=== PATIENT | female | born 1945 | race Caucasian/White ===

== ENCOUNTER 2019-01-02 08:27 | Inpatient (IN) | payer MEDICARE, BC ==
[~2019-01-02] VITALS: Wt 66.0 kg
[2019-01-02] VITALS (23 sets, daily range): BP systolic 34–138; BP diastolic 25–94; PULSE 38–112; RESP 18–30
[~2019-01-02 08:27] MED LIST: EPINEPHrine 0.1 MG/ML SYG ONE; NA BICARBONATE 8.4% 50 ML SYG ONE
[2019-01-02] MEDS ORDERED: SOD CHLORIDE 0.9% 1,000 ML IV STA (08:29)
[2019-01-02] MEDS ORDERED: FENTAnyl 50 MCG/ML VIAL ONE ×2 (08:34→08:52)
--- NOTE | 2019-01-02 08:44 | ERD ---
ER Documentation Chief Complaint Chief Complaint HPI This is a 73-year-old female with a known history of coronary artery disease. The patient had a previous cardiac stent placed several years prior to arrival. The patient awoke this morning roughly 30 minutes prior to arrival when she developed a sudden onset of chest pressure. She stated it was 10 out of 10 in intensity. It is localized to the left chest and did radiate to her left arm and neck. The patient became lightheaded and dizzy. She phoned 911. When EMS arrived the patient's blood pressure was 105/98 mmHg. They performed an EKG tracing that showed ST segment elevation. The patient had been given 1 spray of nitroglycerin and 325 mg of aspirin p.o. The patient stated the pain was similar nature to her previous episodes her myocardial infarct ROS All systems reviewed and are negative except as per history of present illness. Physical Exam Physical Exam Const: No acute distress Head: Atraumatic Eyes: Normal Conjunctiva ENT: Normal External Ears, Nose and Mouth. Neck: Full range of motion. No meningismus. Resp: Clear to auscultation bilaterally Cardio: Regular rate and rhythm, no murmurs Abd: Soft, non tender, non distended. Normal bowel sounds Skin: No petechiae or rashes Back: No midline or flank tenderness Ext: No cyanosis, or edema Neur: Awake and alert Psych: Normal Mood and Affect Results 24 hrs Current Medications Medications Dose Sig/Zaira Start Time Status Last (Trade) Ordered Route PRN Stop Time Admin Dose Reason Admin Sodium 1,000 ml @ Q1H STAT 01/02/19 Chloride 1,000 mls/hr IV 08:29 01/02/19 09:28 Procedures/MDM This is a 73-year-old female that presented to the emergency department as a code STEMI. The patient arrived to the emergency department at 05 20. The EKG was taken in the field at 08 20. And therefore code STEMI was called at 05 16. The patient arrived she was immediately placed on a playground monitor continuous pulse oximetry and 2 large bore IV catheters were established. The patient had an inferior wall LA. EMS had administered nitroglycerin and the patient initially had a blood pressure of 105/38. After receiving the nitroglycerin the patient became hypotensive. Her blood pressure was 69/43 mmHg. The patient was alert awake oriented x3. She was complaining of 10 out of 10 chest pain. I re viewed the chest radiograph that was taken at bedside. The patient had breast implants which which your x-ray which I might have a professionally that was present as artifact present on the chest radiograph but there was no widened mediastinum or infiltrates that were seen. The patient had no pneumothorax. The patient was given fentanyl for analgesic control. A central line was not placed given that the patient will immediately go to the cardiac Registered Nursing Professor due to the severity of her symptoms to undergo emergent PCI. 12 Lead EKG tracing ordered and reviewed by myself showed: Normal sinus rhythm at 73 bpm and no arrhythmia. ID interval normal. QRS duration normal. ST segment elevation in the inferior leads II, III and aVF with a left bundle branch block but utilizing the scar posterior criteria there is underlying ST segment elevation. No ST segment depression. No changes consistent with acute ischemia. Dr. Negron is the copping machine operator who was informed and the patient was taken to the Registered Nursing Professor in serious condition. She will be admitted to the hospitalist to go to the intensive care unit. Departure Diagnosis: Primary Impression: ST elevation myocardial infarction (STEMI) Involved coronary artery: unspecified coronary artery Qualified Codes: I21.3 - ST elevation (STEMI) myocardial infarction of unspecified site Condition: SHANI Woods MD Jan 02, 2019 08:44
[2019-01-02] MEDS ORDERED: NITROGLYCERIN (IC) 100 MCG/ML INJ ONE (08:52)
[2019-01-02] MEDS ORDERED: ONDANSETRON 4 MG INJ ONE (09:37)
[2019-01-02] MEDS ORDERED: FUROSEMIDE 40 MG INJ ONE (09:48)
[2019-01-02] MEDS ORDERED: CANGRELOR TETRASODIUM/ NS 250 50 MG ONE ×2 (10:04→11:18)
[2019-01-02] MEDS ORDERED: BIVALIRUDIN 250MG /NS 50 ML 50 ML IVPB ONE (10:32)
[2019-01-02] MEDS ORDERED: LIDOCAINE 1% (MDV) 20 ML INJ ONE (10:33)
[2019-01-02] MEDS ORDERED: EPTIFIBATIDE 20 ML ONE (10:33)
[2019-01-02] MEDS ORDERED: NORepinephrine 8MG/250 ML (PMX 250 ML ONE (10:33)
[2019-01-02] MEDS ORDERED: HEPARIN 1000 UNITS/NS (A-LINE) 0 ML ONE (10:33)
[2019-01-02] MEDS ORDERED: EPTIFIBATIDE 100 ML IV ONE (10:33)
[2019-01-02] MEDS ORDERED: HEPARIN 1000 UNITS/ML 10 ML INJ ONE (10:35)
--- NOTE | 2019-01-02 10:42 | CONS ---
Assessment/Plan Assessment/Plan Hospital Course (Demo Recall) 73 yo with STEMI due to occlusion of LCX Impression: STEMI Shock, cardiogenic, on levophed Anxiety, dyspnea with borderline saturations, with possibly some volume overload with LVEDP 26, received furosemide in airport maintenance laborer Recommendations: Admit to ICU Echo ASA, continue cangrelor until patient can be loaded with Brilinta PO Statin. BB once off pressors Consultation Date/Type/Reason Admit Date/Time Date of Consultation: Jan 02, 2019 Type of Consult Cardiology Reason for Consultation STEMI Requesting Provider: SHANI MATIAS MD Date/Time of Note DATE: 01/02/19 TIME: 10:33 Hx of Present Illness 73 yo with h/o CAD previously under the care of Dr. Jae Green but has not seen a metal bonding assembler in a long time. She had onset of pain acutely this am, called paramedics. She also ate breakfast this am. She c/o shortness of breath. Stopped her medications about a week ago. Angioplasty was many years ago, she states. EKG showed LBBB with severe ST elevations in inferior and anterolateral leads, had subtotal occlusion of the ostial/prox LCX, performed successful angioplasty and placement of a stent to her LCX. Cangrelor given due to vomiting. Subjective hx not possible: pt critical status Past Medical History Medical History: coronary artery disease Past Surgical History Past Surgical Hx: angioplasty Family History Significant Family History: no pertinent family hx Social History Smoking Status: Never smoker Exam/Review of Systems Vital Signs Vitals Vital Signs Date Temp Pulse Resp B/P (MAP) Pulse Ox O2 O2 Flow FiO2 Time Delivery Rate 01/02/19 Nasal 4 08:40 Cannula 01/02/19 97.8 72 20 69/43 (52) 99 08:38 Exam Constitutional: alert, well developed, other (anxious) Psych: anxiety Head: normocephalic, atraumatic Eyes: nl conjunctiva, nl sclera ENMT: nl external ears & nose Neck: No jvd, No bruits Respiratory: crackles/rales (few coarse sounds) Cardiovascular: regular rate and rhythm, nl pulses (femoral pulses intact) Gastrointestinal: soft, nl liver, spleen, non-tender Musculoskeletal: nl extremities to inspection Extremities: No edema Neurological: nl speech Skin: nl turgor Labs Result Diagram: 01/02/19 0835 01/02/19 0835 Results 24hrs Laboratory Tests Test 01/02/19 08:35 01/02/19 09:19 White Blood Count 16.7 H Red Blood Count 4.06 L Hemoglobin 12.1 Hematocrit 38.3 Mean Corpuscular Volume 94.3 Mean Corpuscular Hemoglobin 29.8 Mean Corpuscular Hemoglobin Concent 31.6 L Red Cell Distribution Width 14.8 H Platelet Count 229 Mean Platelet Volume 8.4 Immature Granulocytes % 1.100 H Neutrophils % 71.9 Lymphocytes % 19.6 Monocytes % 5.3 Eosinophils % 1.7 Basophils % 0.4 Nucleated Red Blood Cells % 0.0 Immature Granulocytes # 0.180 H Neutrophils # 12.0 H Lymphocytes # 3.3 H Monocytes # 0.9 Eosinophils # 0.3 Basophils # 0.1 Nucleated Red Blood Cells # 0.0 Sodium Level 135 Potassium Level 4.0 Chloride Level 107 Carbon Dioxide Level 17 L Anion Gap 11 Blood Urea Nitrogen 22 H Creatinine 0.87 Est Glomerular Filtrat Rate mL/min Glucose Level 148 Calcium Level 9.4 Total Bilirubin 0.5 Direct Bilirubin 0.00 Indirect Bilirubin 0.5 Aspartate Amino Transf (AST/SGOT) 122 H Alanine Aminotransferase (ALT/SGPT) 69 Alkaline Phosphatase 65 Creatine Kinase 277 H Creatine Kinase Index 6.9 Creatinine Kinase MB (Mass) 19.00 H Troponin I 0.991 *H B-Type Natriuretic Peptide 1150 H Total Protein 6.3 Albumin 3.3 Globulin 3.00 Albumin/Globulin Ratio 1.10 Prothrombin Time 13.1 Prothrombin Time Ratio 1.0 INR International Normalized Ratio 0.98 Activated Partial Thromboplast Time 123.7 *H Imaging Imaging Initial ekg with nsr at 72 bpm, LBBB, ST elevations concordant with QRS in II, III, AVF, V5, and V6 with reciprocal changes CHRISTELLE YOUNG Jan 02, 2019 10:42
--- NOTE | 2019-01-02 10:57 | OPR ---
Date/Time of Note Date/Time of Note DATE: 01/02/19 TIME: 10:47 Operative Report Procedure Date: Jan 02, 2019 Preoperative Diagnosis STEMI inferolateral wall Postoperative Diagnosis same Operation/Procedure Performed Coronary angoigraphy Left heart catheterization Percutaneous coronary intervention with stent placement to the LCX Surgeon see signature line Cage Unloader Tavares FALLON Anesthesia Type: other (fentanyl for pain. Could not provide moderate sedation secondary to very recent po intake and vomiting) Estimated Blood Loss: 100 - 150 ml's Transfusion none Specimen none Grafts/Implants none Complications none Pt Condition Post Procedure: stable Disposition: other (ICU) Indications 73 yo with known CAD with remote h/o angioplasty presents with acute chest pain and EKG consistent with inferolateral STEMI Procedure Description Informed consent provided verbally by me. Risks and benefits discussed and she agreed to proceed and all questions answered. As pt had just eaten, moderate sedation could not be provided. Right groin was prepped and draped, fentanyl given for pain. Sheaths placed in the right common femoral vein and artery. A JL4 diagnostic and JR4 guide were used to obtain diagnostic images, engaged the LM and RCA respectively, imaging obtained w injection of dye. LCX found to be culprit vessel. JL4 guide did not sit well, so CLS 3.5 was used. Heparin given, ACT greater than 250 obtained. While attempting to wire the vessel, it occluded completely. Integrilin double bolus and drip was sta rted. Vessel was wired ultimately with a Zachary Blue wire. A 2.0x12 balloon initially was inflated within the vessel, followed by a 3.0x15 balloon. A stent was successfully deployed in the ostial/prox LCX. This was postdilated three times with a 3.5x12 mm noncompliant balloon to 20 aquilino. Good apposition was achieved. Images obtained including a wire out shot demonstrating good flow and no evidence of dissection. A pigtail was advanced to the LV, pressures measured, including LVEDP of 26. LV gram performed with only 20 cc of dye, demonstrating akinesis of the inferior wall, and EF of approximately 50%. Pullback gradient measured. Cangrelor given at the end of the case as patient too nauseated to take po meds. She left the procedure room in stable condition. Findings: LM - large, ok LCX - culprit vessel. Codominant. 95% ostial/proximal occlusion, lesion length 15 mm, with BRYAN I flow LAD - 40% proximal disease, diffuse disease throughout, 80% ostial diagonal RCA - small, codominant vessel with mild luminal irregularities LVEF 50%, inferior akinesis LCX -- predilated with 2.0x12 balloon and 3.0x15 balloon, stented with 3.5x20 mm Synergy, postdilated with 3.5 mm noncompliant balloon. BRYAN III flow at the end of the procedure CHRISTELLE YOUNG Jan 02, 2019 10:57
[2019-01-02] MEDS ORDERED: LORAZEPAM 2 MG INJ ONE (10:58)
[2019-01-02] MEDS ORDERED: SOD CHLORIDE 0.9% 1,000 ML IV SCH (11:03)
[2019-01-02] MEDS ORDERED: ZOLPIDEM 5 MG TAB PO PRN (11:30)
[2019-01-02] MEDS ORDERED: TICAGRELOR 90 MG TABLET PO ONE (11:30)
[2019-01-02] MEDS ORDERED: DIAZEPAM 2 MG TAB PO PRN (11:30)
[2019-01-02] MEDS ORDERED: FUROSEMIDE 20 MG INJ ONE (11:34)
[2019-01-02] MEDS ORDERED: PROPOFOL 100 ML ONE (11:48)
[2019-01-02] MEDS ORDERED: MIDAZOLAM 1 MG/ML 2 ML INJ ONE (11:52)
[2019-01-02] MEDS ORDERED: FUROSEMIDE 20 MG INJ IV ONE (12:00)
[2019-01-02] MEDS ORDERED: PROPOFOL 100 ML IV SCH ×3 (12:00→13:30)
[2019-01-02] MEDS ORDERED: FENTAnyl (DRIP) 1000 mcg/100mL 100 ML IV SCH (12:00)
[2019-01-02] MEDS ORDERED: MIDAZOLAM (DRIP) 50 mg/50 mL 50 ML IV SCH (12:00)
--- NOTE | 2019-01-02 13:34 | HP ---
Date/Time of Note Date/Time of Note DATE: 01/02/19 TIME: 13:25 Assessment/Plan VTE Prophylaxis SCD applied (from Nsg): Yes Pharmacological prophylaxis: other Lines/Catheters IV Catheter Type (from Nrsg): Saline Lock Assessment/Plan Hospital Course Assessment and plan: 73-year-old female history of coronary artery disease prior stent placement, hypertension who presented with chest pain with findings of ST elevation KS, status post left heart cath with stent placement to left circumflex on this admission, now with subsequent respiratory failure, intubated and sedated. #Chest pain status post ST elevation KS: Again patient status post left heart cath with stent placement today to left circumflex artery. -Continue post procedure care in the ICU including aspirin, statin, and Brilinta medications, other cardiac medications as recommended by cardiology team -Monitor vital signs including heart rate blood pressure very carefully, follow-up further cardiac recommendations #Prior history of coronary artery disease: See above, continue current care as mentioned above #Respiratory failure: Patient developed this shortly after left heart cath was performed the patient transferred to intensive care unit. Patient now intubated and sedated -Continue mechanical ventilation via pulmonary recommendations and vent kulwant gement per them -Consider adding duo nebs as needed, monitor vital signs very carefully #Hypertension: See above, continue current cardiac medications monitor blood pressure carefully Result Diagram: 01/02/19 0835 01/02/19 0835 Results 24hrs Laboratory Tests Test 01/02/19 08:35 01/02/19 09:19 01/02/19 10:30 01/02/19 12:06 White Blood 16.7 H Count Red Blood Count 4.06 L Hemoglobin 12.1 Hematocrit 38.3 Mean Corpuscular 94.3 Volume Mean Corpuscular 29.8 Hemoglobin Mean Corpuscular 31.6 L Hemoglobin Jo Ann nt Red Cell 14.8 H Distribution Width Platelet Count 229 Mean Platelet 8.4 Volume Immature 1.100 H Granulocytes % Neutrophils % 71.9 Lymphocytes % 19.6 Monocytes % 5.3 Eosinophils % 1.7 Basophils % 0.4 Nucleated Red 0.0 Blood Cells % Immature 0.180 H Granulocytes # Neutrophils # 12.0 H Lymphocytes # 3.3 H Monocytes # 0.9 Eosinophils # 0.3 Basophils # 0.1 Nucleated Red 0.0 Blood Cells # Sodium Level 135 Potassium Level 4.0 Chloride Level 107 Carbon Dioxide 17 L Level Anion Gap 11 Blood Urea 22 H Nitrogen Creatinine 0.87 Est Glomerular Filtrat Rate mL/min Glucose Level 148 Calcium Level 9.4 Total Bilirubin 0.5 Direct Bilirubin 0.00 Indirect 0.5 Bilirubin Aspartate Amino 122 H Transf (AST/SGOT ) Alanine 69 Aminotransferase (ALT/SGPT) Alkaline 65 Phosphatase Creatine Kinase 277 H Creatine Kinase 6.9 Index Creatinine 19.00 H Kinase MB (Mass) Troponin I 0.991 *H B-Type 1150 H Natriuretic Peptide Total Protein 6.3 Albumin 3.3 Globulin 3.00 Albumin/Globulin 1.10 Ratio Prothrombin Time 13.1 Prothrombin Time 1.0 Ratio INR 0.98 International Normalized Ratio Activated 123.7 *H Partial Thrombop last Time Blood Gas Blood arterial Blood arterial Specimen Source Arterial Blood 01/02/2019 10:30 01/02/2019 12:55 Date Drawn :30 AM :33 PM Arterial Blood 7.171 *L 7.242 *L pH (Temp corrected) Arterial Blood 45.5 H 44.9 pCO2 (Temp correct) Arterial Blood 65.2 L 111.8 H pO2 (Temp corrected) Arterial Blood 16.3 L 18.9 L HCO3 Arterial Blood -11.9 L -8.3 L Base Excess Arterial Blood 87.4 L 97.1 Oxygen Saturatio n Arthur Test ACCEPTAB N/A Arterial Blood A-Line A-Line Gas Puncture Site Arterial 0.3 0.3 Blood Carboxyhem oglobin Arterial Blood 0.3 0.1 Methemoglobin Blood Gas A-a O2 602.3 H 556.3 H Differential Oxyhemoglobin 86.9 L 96.7 Percent Blood Gas 37.0 37.0 Temperature Blood Gas MASK - NRB VENT - AC Modality FiO2 100.0 100.0 Blood Gas JORDEN FARRIS RN Critical Value Read Back Blood Gas TM TM Notified Whom Blood Gas 01/02/2019 10:35 01/02/2019 1:05: Notified Time :13 AM 50 PM Blood Gas 20.0 Respiration Rate Blood Gas Actual 23 Respiration Rate Blood Gas Tidal 550.0 Volume Blood Gas Low 5.0 PEEP Setting HPI/ROS Admit Date/Time Admit Date/Time Hx of Present Illness 73-year-old female past medical history coronary artery disease with prior stent placement with possible KS in the past? several years ago, hypertension who presented to the ER after awaking this morning roughly 30 minutes prior to arrival when she developed a sudden onset of chest pressure. Patient stated 10 out of 10 pain intensity. Patient localized the pain to the left chest and stated positive radiate to her left arm and neck. Patient also had lightheadedness and dizziness. Patient called 911 and when EMS arrived EKG tracing showed ST segment elevation. Specifically heart rate was [address] with [address] elevation in leads II, III and aVF along with left bundle branch block. There were no signs of any ST depressions. The patient was given 1 spray of nitroglycerin and 325 mg of aspirin p.o. patient was taken to the [facility] [employer] Attendant earlier today and found with left circumflex blockage and had stent plac ement performed. Patient was sent to the intensive care unit afterwards, however she developed severe shortness of breath and was placed on BiPAP. However her respiratory distress worsened and she had to be intubated and she has been evaluated by pulmonary team. She is presently intubated and sedated. Full review of systems cannot be obtained at this time. Per discussion with staff patient apparently had seen a hospital cna years ago but had not followed up with them in quite some time and had not been taking her cardiac medications recently before admission today. PMH/Family/Social Past Medical History Medications Current Medications Aspirin (Halfprin) 81 mg DAILY PO ; Start 01/03/19 at 09:00 Ticagrelor (Brilinta) 90 mg BID PO ; Start 01/02/19 at 21:00 Diazepam (Valium) 2 mg Q6H PRN PO RESTLESSNESS; Start 01/02/19 at 11:30 Zolpidem Tartrate (Ambien) 5 mg HS MAY REPEAT X 1 PRN PO INSOMNIA; Start 01/02/19 at 11:30 Atorvastatin Calcium (Lipitor) 80 mg DAILY@21 PO ; Start 01/02/19 at 21:00 Fentanyl 100 ml @ 2.5 mls/hr TITRATE IV Last administered on 01/02/19at 12:17; Admin Dose 2.5 MLS/HR; Start 01/02/19 at 12:00 Midazolam HCl 50 ml @ 1 mls/hr TITRATE IV Last administered on 01/02/19at 12:17; Admin Dose 2 MLS/HR; Start 01/02/19 at 12:00 Propofol 100 ml @ 1.98 mls/hr Q12H IV ; Start 01/02/19 at 13:30 Coded Allergies: No Known Allergy (Unverified , 01/02/19) Past Surgical History Past Surgical Hx: angioplasty Family History Significant Family History: no pertinent family hx Social History Smoking Status: Never smoker Exam/Review of Systems Vital Signs Vitals Vital Signs Date Temp Pulse Resp B/P (MAP) Pulse Ox O2 O2 Flow FiO2 Time Delivery Rate 01/02/19 103 12:00 01/02/19 Nasal 4 08:40 Cannula 01/02/19 97.8 20 69/43 (52) 99 08:38 Exam Exam Gen: Lying in bed, intubated and sedated presently Head: Atraumatic Eyes: Unable to fully assess at this time ENT: Unable to fully assess at this time Neck: Supple Resp: Clear to auscultation bilaterally Cardio: Regular rate and rhythm, no murmurs Abd: Soft, non tender, non distended. Normal bowel sounds Ext: No bilateral lower extremity edema Neur: Intubated and sedated presently HELGA ANDRES Jan 02, 2019 13:34
[2019-01-02] MEDS ORDERED: NORepinephrine 8MG/250 ML (PMX 250 ML IV SCH (14:00)
[2019-01-02] MEDS ORDERED: METOPROLOL 5 MG INJ IV SCH (15:00)
[2019-01-02] MEDS ORDERED: MAGNESIUM SULFATE 2 GM/50 ML 50 ML IVPB ONE (15:00)
[2019-01-02] MEDS ORDERED: AMIODARONE 150MG/D5W BOLUS 0 ML ONE (15:12)
[2019-01-02] MEDS ORDERED: EPINEPHrine 4 MG in SOD CHLORIDE 0.9% 246 ML IV SCH (15:30)
[2019-01-02] MEDS ORDERED: AMIODARONE 900 MG in DEXTROSE 5% 482 ML IV SCH (15:30)
--- NOTE | 2019-01-02 15:50 | DES ---
Date/Time of Note Date/Time of Note DATE: 01/02/19 TIME: 15:47 Discharge/ Summary Admission/Discharge Info Admit Date/Time Final Diagnosis # Chest pain status post ST elevation AR: Again patient status post left heart cath with stent placement today to left circumflex artery. # Prior history of coronary artery disease: See above, continue current care as mentioned above # Respiratory failure: intubated and sedated # Shock: cardiogenic vs septic #Hx of Hypertension Preliminary Cause of # respiratory failure - minutes # cardiac arrest: sec to AR - minutes Admit History 73-year-old female past medical history coronary artery disease with prior stent placement with possible AR in the past? several years ago, hypertension who presented to the ER after awaking this morning roughly 30 minutes prior to arrival when she developed a sudden onset of chest pressure. Patient stated 10 out of 10 pain intensity. Patient localized the pain to the left chest and stated positive radiate to her left arm and neck. Patient also had lightheadedness and dizziness. Patient called 911 and when EMS arrived EKG tracing showed ST segment elevation. Specifically heart rate was [address] elevation in leads II, III and aVF along with left bundle branch block. There were no signs of any ST depressions. The patient was given 1 spray of nitroglycerin and 325 mg of aspirin p.o. patient was taken to the [facility] Rep[facility]r earlier today and found with left circumflex blockage and had stent placement performed. Patient was sent to the intensive care unit afterwards, however she developed severe shortness of breath and was placed on BiPAP. However her respiratory distress worsened and she had to be intubated and she has been evaluated by pulmonary team. She is presently intubated and sedated. Full review of systems cannot be obtained at this time. Per discussion with staff patient apparently had seen a data storage specialist years ago but had not followed up with them in quite some time and had not been taking her cardiac medications recently before admission today. Hospital Course Code STEMI was called in the ER, and patient went to cardiac Slot Machine Repairer. She underwent left heart catheterization and had stent placement to the left circumflex artery after blockage was found there. Afterwards patient was transferred to the intensive care unit. Unfortunately shortly afterwards she developed respiratory distress and failure and had to be intubated after receiving BiPAP. She also became hypotensive and was started initially on levo fed. Patient stayed this way for a few hours until she coded, as patient patient developed short runs nsvt, VF. Patient had a prolonged code including rhythm development of PEA, although she briefly had return of circulation a couple of times (code time was around 30-35 minutes). Patient eventually was maxed out on 3 pressors. Despite these efforts, patient unfortunately later today at 15:45. Pending Labs/Cultures Laboratory Tests Test 01/02/19 08:35 01/02/19 09:19 01/02/19 10:30 01/02/19 12:06 White Blood 16.7 Count 10^3/ul (4.8-10 .8) Red Blood 4.06 Count 10^6/ul (4.20-5 .40) Hemoglobin 12.1 g/dl (12.0-16.0 ) Hematocrit 38.3 % (37.0-47.0) Mean 94.3 Corpuscular fl (82.0-101.0) Volume Mean 29.8 Corpuscular pg (29.0-33.0) Hemoglobin Mean 31.6 Corpuscular g/dl (32.0-37.0 Hemoglobin Conc ) ent Red Cell 14.8 Distribution % (11.5-14.5) Width Platelet Count 229 10^3/UL (140-41 5) Mean Platelet 8.4 Volume fl (7.4-10.4) Immature 1.100 Granulocytes % % (0.001-0.429) Neutrophils % 71.9 % (39.0-77.0) Lymphocytes % 19.6 % (15.0-51.0) Monocytes % 5.3 % (0.0-11.0) Eosinophils % 1.7 % (0.0-7.0) Basophils % 0.4 % (0.0-2.0) Nucleated Red 0.0 Blood Cells % /100WBC (0.0-0. 0) Immature 0.180 Granulocytes # 10^3/ul (0.0-0. 031) Neutrophils # 12.0 10^3/ul (1.6-7. 5) Lymphocytes # 3.3 10^3/ul (0.8-2. 9) Monocytes # 0.9 10^3/ul (0.3-0. 9) Eosinophils # 0.3 10^3/ul (0.0-0. 5) Basophils # 0.1 10^3/ul (0.0-0. 1) Nucleated Red 0.0 Blood Cells # 10^3/ul (0.0-0. 0) Sodium Level 135 mmol/L (135-144 ) Potassium 4.0 Level mmol/L (3.5-5.1 ) Chloride Level 107 mmol/L (97-110) Carbon Dioxide 17 Level mmol/L (21-31) Anion Gap 11 (5-13) Blood Urea 22 mg/dl (7-20) Nitrogen Creatinine 0.87 mg/dl (0.44-1.0 0) Est Glomerular mL/min (>60) Filtrat Rate mL/min Glucose Level 148 mg/dl (70-220) Calcium Level 9.4 mg/dl (8.4-10.2 ) Total 0.5 Bilirubin mg/dl (0.2-1.3) Direct 0.00 Bilirubin mg/dl (0.00-0.2 0) Indirect 0.5 Bilirubin mg/dl (0-1.1) Aspartate Amino 122 Transf (AST/SGO IU/L (15-46) T) Alanine 69 IU/L (13-69) Aminotransferas e (ALT/SGPT) Alkaline 65 Phosphatase IU/L (42-121) Creatine 277 Kinase IU/L (23-200) Creatine Kinase 6.9 Index Creatinine 19.00 Kinase MB ng/ml (0.0-2.4) (Mass) Troponin I 0.991 ng/ml (0.000-0. 120) B-Type 1150 Natriuretic PG/ML (0-125) Peptide Total Protein 6.3 g/dl (6.1-8.1) Albumin 3.3 g/dl (3.3-4.9) Globulin 3.00 g/dl (1.3-3.2) Albumin/Globuli 1.10 n Ratio Prothrombin 13.1 Time Sec (11.9-14.9 ) Prothrombin 1.0 Time Ratio INR 0.98 International Normalized Rati o Activated 123.7 Partial Thrombo Sec (23.0-35.0 plast Time ) Blood Gas Blood arterial Blood arterial Specimen Source Arterial Blood 01/02/2019 10:3 01/02/2019 12:5 Date Drawn 0:30 AM 5:33 PM Arterial Blood 7.171 (7.350-7 7.242 (7.350-7 pH .450) .450) (Temp corrected ) Arterial Blood 45.5 44.9 pCO2 mmhg (35-45) mmhg (35-45) (Temp correct) Arterial Blood 65.2 111.8 pO2 mmHG (80-90.0) mmHG (80-90.0) (Temp corrected ) Arterial Blood 16.3 18.9 HCO3 mmol/L (22.0-2 mmol/L (22.0-2 6.0) 6.0) Arterial Blood -11.9 -8.3 Base Excess mmol/L (-3.0-3 mmol/L (-3.0-3 ) ) Arterial Blood 87.4 97.1 Oxygen Saturati mmHG (95.0-100 mmHG (95.0-100 on .0) .0) Arthur Test ACCEPTAB N/A Arterial Blood A-Line A-Line Gas Puncture Site Arterial 0.3 0.3 Blood Carboxyhe % (0.0-3.0) % (0.0-3.0) moglobin Arterial Blood 0.3 0.1 Methemoglobin % (0.0-1.5) % (0.0-1.5) Blood Gas A-a 602.3 556.3 O2 mmHg (7.0-24.0 mmHg (7.0-24.0 Differential ) ) Oxyhemoglobin 86.9 96.7 Percent % (93.0-99.0) % (93.0-99.0) Blood Gas 37.0 C 37.0 C Temperature Blood Gas MASK - NRB VENT - AC Modality FiO2 100.0 % 100.0 % Blood Gas JORDEN FARRIS RN Critical Value Read Back Blood Gas TM TM Notified Whom Blood Gas 01/02/2019 10:3 01/02/2019 1:05 Notified Time 5:13 AM :50 PM Blood Gas 20.0 Respiration Rate Blood Gas 23 Actual Respiration Rat e Blood Gas Tidal 550.0 mL Volume Blood Gas Low 5.0 cmH2O PEEP Setting Test 01/02/19 13:05 01/02/19 14:27 Urine Color YELLOW (YELLOW) Urine Clarity SLIGHTLY CLOUDY (CLEAR) Urine pH 5.0 (5.0-9.0) Urine Specific 1.031 (1.003-1. [place] 030) Urine Ketones NEGATIVE mg/dL (NEGATIVE ) Urine Nitrite NEGATIVE mg/dL (NEGATIVE ) Urine NEGATIVE Bilirubin mg/dL (NEGATIVE ) Urine NEGATIVE Urobilinogen mg/dL (NEGATIVE ) Urine Leukocyte NEGATIVE [place]/ul Esterase Urine 2 /HPF (0-5) Microscopic RBC Urine 4 /HPF (0-5) Microscopic WBC Urine Bacteria FEW /HPF (NONE SEEN) Urine 3+ Hemoglobin mg/dL (NEGATIVE ) Urine Glucose 1+ mg/dL (NEGATIVE ) Urine Total NEGATIVE Protein mg/dl (NEGATIVE ) Sodium Level 134 mmol/L (135-14 4) Potassium 4.5 Level mmol/L (3.5-5. 1) Chloride Level 104 mmol/L (97-110 ) Carbon Dioxide 22 Level mmol/L (21-31) Anion Gap 8 (5-13) Blood Urea 25 Nitrogen mg/dl (7-20) Creatinine 1.01 mg/dl (0.44-1. 00) Est Glomerular mL/min (>60) Filtrat Rate mL/min Glucose Level 159 mg/dl (70-220) Calcium Level 8.7 mg/dl (8.4-10. 2) Magnesium 1.9 Level mg/dl (1.7-2.5 ) Total 0.6 Bilirubin mg/dl (0.2-1.3 ) Direct 0.00 Bilirubin mg/dl (0.00-0. 20) Indirect 0.6 Bilirubin mg/dl (0-1.1) Aspartate Amino 1082 Transf (AST/SGO IU/L (15-46) T) Alanine 263 Aminotransferas IU/L (13-69) e (ALT/SGPT) Alkaline 86 Phosphatase IU/L (42-121) Total Protein 6.7 g/dl (6.1-8.1) Albumin 3.4 g/dl (3.3-4.9) Globulin 3.30 g/dl (1.3-3.2) Albumin/Globuli 1.03 n Ratio HELGA ANDRES Jan 02, 2019 15:50
--- NOTE | 2019-01-02 15:53 | EN ---
Date/Time of Note Date/Time of Note DATE: 01/02/19 TIME: 15:48 Event Note Cardiology Cardiology Event Note Patient developed short runs nsvt, metoprolol and mg ordered. Pt then had VF. Prolonged code, rhythm degenerated into PEA, briefly had return of circulation a couple of times. Code time greater than 35 minutes. Patient was on three doses of maximal pressors. EKG reviewed, showed LBBB, did not have the ST elevations that were noted on presentation, so stent thrombosis felt to be unlikely. Pronounced at 15:45. Probable cause of is extension of her infarct. Neighbor/friend present at time of . CHRISTELLE YOUNG Jan 02, 2019 15:53
--- NOTE | 2019-01-02 16:58 | RADRPT ---
Vent Rate: 52 bpm RR Interval: 0 msec LA Interval: 0 msec QRS Duration: 148 msec QT Interval: 444 msec QTC Interval: 412 msec P-R-T Brule: 0 - -58 - 0 degrees Wide QRS rhythm Left axis deviation Left bundle branch block Abnormal ECG Electronically Signed By: Murray Chen
--- NOTE | 2019-01-02 16:59 | RADRPT ---
Vent Rate: 78 bpm RR Interval: 0 msec AR Interval: 202 msec QRS Duration: 154 msec QT Interval: 422 msec QTC Interval: 481 msec P-R-T [place]: 77 - 0 - 0 degrees Normal sinus rhythm Left bundle branch block Abnormal ECG Electronically Signed By: Murray Chen
--- NOTE | 2019-01-02 16:59 | RADRPT ---
Vent Rate: 74 bpm RR Interval: 816 msec [place] Interval: 182 msec QRS Duration: 148 msec QT Interval: 497 msec QTC Interval: 550 msec P-R-T Lane: 67 - 73 - 253 degrees Sinus rhythm...normal P axis, V-rate 50- 99 IVCD, consider LBBB...QRSd>120, notch/slur R I aVL V5-6 Prolonged QT interval...QTc >500mS Electronically Signed By: Murray Chen
--- NOTE | 2019-01-02 17:03 | SP ---
DATE OF PROCEDURE: PROCEDURE: Endotracheal intubation. INDICATION: Hypoxemic respiratory failure. DESCRIPTION OF PROCEDURE: The patient was placed in supine position, blood pressure, EKG, pulse oxim etry continuously monitored. The patient was given 10 mg of etomidate and 100 mg of succinylcholine. Using Adela blade 4 laryngoscope, vocal cords were visualized. A size 7.5 endotracheal tube wa s passed through the vocal cords and secured at 24 cm to the lip. CO2 capnometer was immediately pos itive. The patient had equal breath sounds bilaterally. Post-intubation chest x-ray and arterial bl ood gas have been requested. The patient tolerated the procedure without complication. Dictated By: KEYSHA FRANCISCO MD SV/SHAQ Conf#: [id number] DID#: [id number] CC: CHRISTELLE YOUNG MD; HELGA ANDRES;*EndCC*
--- NOTE | 2019-01-02 17:09 | CONS ---
DATE OF ADMISSION: 01/02/2019 DATE OF CONSULTATION: TYPE OF CONSULTATION: Pulmonary. REASON FOR CONSULTATION: Respiratory failure. Thank you, Dr. Yao, for this consultation. HISTORY OF PRESENT ILLNESS: This is a 73-year-old lady with a history of coronary artery disease who presented to the emergency room with 30-minute central chest discomfort and pressure, 10/10 in inten sity. EKG was concerning for acute myocardial infarction. The patient was taken to cardiac floating labor gang supervisor and found to have occlusion of circumflex, underwent dilatation and stent placement. Post-procedure , she was transferred to intensive care unit where she had severe respiratory distress, hypoxemia and increased work of breathing requiring emergent intubation and mechanical ventilation. PAST MEDICAL HISTORY: Coronary artery disease with prior stents and history of bilateral breast impl ants. SYSTEMS REVIEW: A 12-point review of systems currently unable to perform. MEDICATIONS PRIOR TO ADMISSION: Unknown. ALLERGIES: NONE. SOCIAL HISTORY: Nonsmoker, no alcohol, no history of drug use. FAMILY HISTORY: Noncontributory PHYSICAL EXAMINATION: GENERAL: Well-nourished, well-developed lady now intubated on mechanical ventilation. VITAL SIGNS: Afebrile, pulse is 100, blood pressure 130/60, O2 saturation 96%, FIO2 of 100%. NECK: Supple. No JVD or lymphadenopathy. CARDIAC: S1, S2, no added sounds or murmurs. CHEST: Diminished air entry bilaterally. ABDOMEN: Soft, nontender. No guarding or rebound. EXTREMITIES: No cyanosis, clubbing or edema. NEUROLOGIC: Generalized weakness. LABORATORY DATA: White count 16.7, hemoglobin 12.1, platelets 228. BUN 22, creatinine 0.87. Initia l ABG: pH 7.17, pCO2 of 45, pO2 of 65, bicarbonate was 16.3, INR 0.98. DIAGNOSTIC DATA: Chest x-ray showed pulmonary edema. EKG: Inferior lateral TX. IMPRESSION AND PLAN: 1. Acute inferolateral myocardial infarction in a patient with a prior history of coronary artery di sease, status post dilatation, stent placement and antiplatelet therapy. 2. Acute hypoxemic respiratory failure secondary to above with volume overload. 3. Prior history of coronary artery disease. PLAN: 1. Continue mechanical ventilation. 2. Antiplatelet therapy per cardiology. 3. Aspiration precautions. 4. DVT and GI prophylaxis. 5. May require bicarbonate drip given metabolic acidosis likely secondary to hypoperfusion. Dictated By: KEYSHA BOOGIE/SHAQ Conf#: [id number] DID#: [id number]
--- NOTE | 2019-01-02 19:42 | EN ---
Date/Time of Note Date/Time of Note DATE: 01/02/19 TIME: 14:15 ER Progress Note CODE BLUE NOTE Subjective: I was called out of the emergency department to the ICU for a CODE BLUE event. The patient was receiving high-quality CPR and being bagged by respiratory therapy. Once at bedside, I immediately took over as the CODE BLUE leader and ran the code. Please note the history and physical exam is limited as the patient is in full cardiac arrest and is receiving CPR at this time. Objective: Vital signs reviewed Const: Unresponsive Head: Normocephalic, Atraumatic Eyes: Fixed and dilated pupils. ENT: Normal External Ears, Nose and Mouth. Resp: Patient intubated. No voluntary respirations. Respirations being assisted via BVM by a respiratory therapist with symmetric chest wall bentley. Cardio: Pulseless, no heart beat. Ventricular tachycardia on the monitor. Right femoral vein central line in place. Abd: Non distended Skin: No petechiae or rashes Back: Deferred Ext: No cyanosis, or edema Neur: Unresponsive. Eyes closed. No voluntary movements or response to pain. Nonverbal. GCS 3. Assessment: Cardiac Arrest Plan: Please see the code sheet for full details. The patient's blood work was reviewed by myself. She was already intubated with central line access. ACLS protocol was followed. The patient received high-quality CPR. The patient received multiple rounds of epinephrine, sodium bicarbonate. The patient received a 150 mg and later 300 mg bolus of amiodarone. She was defibrillated multiple times as well. We were ultimately able to achieve return of spontaneous circulation. I requested that the nursing staff to get an amiodarone drip per protocol. The patient already had magnesium running. The patient was on levo fed and dopamine drips already. I requested that they initiate an epinephrine drip per protocol as well. I did return to the emergency department, but a second CODE BLUE event was called and I did return to the patient's bedside. The patient received additional rounds of epinephrine. She was defibrillated multiple times again with return of spontaneous circulation. At that time, the patient's hydrologist, Dr. Negron, arrived to bedside along with Dr. Yao. They will assume care of the patient. A third CODE BLUE event was called in the hospital, but Dr. Negron was already at bedside and able to run the code. She did not need my assistance. CRITICAL CARE NOTE Time: 31 minutes excluding all billable procedures. Treatments/Evaluations: The patient was at risk of hemodynamic compromise. Timing of critical care involved close serial monitoring, evaluation of the patient's medical record including previous records & current laboratory/imaging studies, potential interventions for prevention of hemodynamic/ cardiopulmonary/ neurologic compromise, maintaining tight fluid balance, and any discussions with the family and/or consultants regarding the patient's status and prognosis. EL MACHADO MD Jan 02, 2019 19:42
[2019-01-02] MEDS ORDERED: TICAGRELOR 90 MG TABLET PO SCH (21:00)
[2019-01-02] MEDS ORDERED: ATORVASTATIN 80 MG TAB PO SCH (21:00)
[2019-01-03] MEDS ORDERED: ASPIRIN (EC) 81 MG TAB PO SCH (09:00)
== END 2019-01-02 15:45 | disposition expired | DRG 246 ==
LOC: E/R 08:27 → CCL 08:35 → SDS 08:35 → ICU 10:55 → SUATTDRO 13:17 → CCL 19:35
PROVIDERS: ADMIT Hospitalist; ATTEND Hospitalist
PROC: B211YZZ Fluoroscopy of Multiple Coronary Arteries using Other Contrast (ICD-10-PCS; 2019-01-02)
PROC: B215YZZ Fluoroscopy of Left Heart using Other Contrast (ICD-10-PCS; 2019-01-02)
PROC: 0BH18EZ Insertion of Endotracheal Airway into Trachea, Via Natural or Artificial Opening Endoscopic (ICD-10-PCS; 2019-01-02)
PROC: 5A1935Z Respiratory Ventilation, Less than 24 Consecutive Hours (ICD-10-PCS; 2019-01-02)
PROC: 5A12012 Performance of Cardiac Output, Single, Manual (ICD-10-PCS; 2019-01-02)
PROC: 5A2204Z Restoration of Cardiac Rhythm, Single (ICD-10-PCS; 2019-01-02)
PROC: 027034Z Dilation of Coronary Artery, One Artery with Drug-eluting Intraluminal Device, Percutaneous Approach (ICD-10-PCS; principal; 2019-01-02 08:00)
PROC: 4A023N7 Measurement of Cardiac Sampling and Pressure, Left Heart, Percutaneous Approach (ICD-10-PCS; 2019-01-02 08:00)
DX: I21.19 ST elevation (STEMI) myocardial infarction involving other coronary artery of inferior wall (principal); J96.01 Acute respiratory failure with hypoxia; R65.21 Severe sepsis with septic shock; A41.9 Sepsis, unspecified organism; I47.1 Supraventricular tachycardia; I25.10 Atherosclerotic heart disease of native coronary artery without angina pectoris; I10 Essential (primary) hypertension; R57.0 Cardiogenic shock; I21.21 ST elevation (STEMI) myocardial infarction involving left circumflex coronary artery; E87.70 Fluid overload, unspecified; I49.01 Ventricular fibrillation; I46.9 Cardiac arrest, cause unspecified; F41.9 Anxiety disorder, unspecified
CPT/HCPCS: 31500; 36600; 71045; 80053; 81001; 82550; 82553; 82803; 83735; 83880; 84484; 85025; 85610; 85730; 87081; 87086; 92950; 93005; 93458; C1725; C1874; C1887; C1894; C9460; C9606; J0171; J0282; J0583; J1327; J1644; J1940; J2060; J2250; J2405; J3010; J3475; J7030; J7050; J7060